=== PATIENT | female | born 1990 | race Caucasian/White ===

== ENCOUNTER 2020-04-29 12:02 | Inpatient (IN) | payer BC ==
[~2020-04-29] VITALS: Ht 177.8 cm; Wt 88.9 kg
--- NOTE | 2020-04-29 13:52 | NUR ---
RT COLLECTED COVID 19 SWAB WITH NO COMPLICATIONS. RT USED THE CEPHEID RAPID TEST THROUGH [facility] PER DR REQUEST AT THIS TIME.
--- NOTE | 2020-04-30 14:34 | PR ---
[facility] [address] [facility] [place], [place] [address] Signed PP Progress Notes Datetime Report Generated by CPN: 04/30/2020 14:34 SUBJECTIVE: [id number] Pain: Within Normal Limits Nausea/Vomiting: Denies Flatus: Yes Bowel Movement: No Vital Signs: [id number] Vital Signs: Reviewed; Within Normal Limits Notable Details: normotensive since delivery Cardiovascular: Normal Respiratory: Normal Abdomen/Uterus: Normal Lochia: Normal Vulva/Perineum: Normal Breasts: Normal CVA Tenderness: Normal Extremities: Normal Progress: Normal IMPRESSION/PLAN/PROCEDURES: [id number] Impression: Normal Progression Plan: Continue Present Management Procedures: None Progress Notes: Pt is a 29 yo G1 now P1001 PPD#1 s/p -uncomplicated labor/delivery -COVID+ on admission, h/o COVID+ 01/21/21, asymptomatic, in isolation - well, denies complaints Anticipate DC to home tomorrow Signing Physician: Lynette Guardado DO Copies: ~ *Electronically Signed* 04/30/20 1434 LYNETTE GUARDADO DO PATIENT NAME: JEANA MARCANO PROGRESS NOTE DATE OF : 89 PHYSICIAN: LYNETTE GUARDADO DO RPT #: [id number] REPORT IS CONFIDENTIAL AND NOT TO BE RELEASED WITHOUT AUTHORIZATION
--- NOTE | 2020-04-30 14:35 | PR ---
[facility] [address] [facility] [place], [place] [address] Signed PP Progress Notes Datetime Report Generated by CPN: 04/30/2020 14:35 SUBJECTIVE: [id number] Pain: Within Normal Limits Nausea/Vomiting: Denies Flatus: Yes Bowel Movement: No Vital Signs: [id number] Vital Signs: Reviewed; Within Normal Limits Notable Details: normotensive since delivery Cardiovascular: Normal Respiratory: Normal Abdomen/Uterus: Normal Lochia: Normal Vulva/Perineum: Normal Breasts: Normal CVA Tenderness: Normal Extremities: Normal Progress: Normal IMPRESSION/PLAN/PROCEDURES: [id number] Impression: Normal Progression Plan: Continue Present Management Procedures: None Progress Notes: Pt is a 29 yo G1 now P1001 PPD#1 s/p -uncomplicated labor/delivery -COVID+ on admission, h/o COVID+ 01/21/21, asymptomatic, in isolation - well, denies complaints Anticipate DC to home tomorrow Signing Physician: Lynette Guardado DO Copies: ~ *Electronically Signed* 04/30/20 2971 LYNETTE GUARDADO DO PATIENT NAME: JEANA MARCANO PROGRESS NOTE DATE OF : [birth year] PHYSICIAN: LYNETTE GUARDADO DO RPT #: [id number] REPORT IS CONFIDENTIAL AND NOT TO BE RELEASED WITHOUT AUTHORIZATION
--- NOTE | 2020-05-01 08:29 | PR ---
[facility] [address] [facility] [place] [address] Signed PP Progress Notes Datetime Report Generated by CPN: 05/01/2020 08:29 SUBJECTIVE: [id number] Pain: Within Normal Limits Nausea/Vomiting: Denies Flatus: Yes Bowel Movement: Yes Vital Signs: [id number] Vital Signs: Reviewed Notable Details: normotensive since delivery Cardiovascular: Normal Respiratory: Normal Abdomen/Uterus: Normal Lochia: Normal Vulva/Perineum: Normal Breasts: Normal CVA Tenderness: Normal Extremities: Normal Progress: Normal Exam Comments: Fundus firm below umbilicus Lochia light Extremities without edema, peripheral pulses palpable bilaterally RRR IMPRESSION/PLAN/PROCEDURES: [id number] Impression: Normal Progression Plan: Continue Present Management; Discharge Procedures: None Progress Notes: PPD#2 s/p Admitted for PROM COVID+ on admission, h/o COVID 01/2020 Normal progress, anticipate DC to home today Signing Physician: Lynette Guardado DO Copies: ~ *Electronically Signed* 05/01/20 0829 LYNETTE GUARDADO DO PATIENT NAME: JEANA MARCANO PROGRESS NOTE DATE OF : 89 PHYSICIAN: LYNETTE GUARDADO DO RPT #: [id number] REPORT IS CONFIDENTIAL AND NOT TO BE RELEASED WITHOUT AUTHORIZATION
== END 2020-05-01 11:10 | disposition home or self-care (01) | DRG 805 ==
LOC: FBCO 12:02 → FBC 13:30
PROVIDERS: ADMIT Obstetrics & Gynecology; ATTEND Obstetrics & Gynecology
PROC: 10E0XZZ Delivery of Products of Conception, External Approach (ICD-10-PCS; principal; 2020-04-29)
PROC: 0KQM0ZZ Repair Perineum Muscle, Open Approach (ICD-10-PCS; 2020-04-29)
PROC: 0UQMXZZ Repair Vulva, External Approach (ICD-10-PCS; 2020-04-29)
DX: O98.52 Other viral diseases complicating childbirth (principal); U07.1 COVID-19; Z37.0 Single live birth; O42.92 Full-term premature rupture of membranes, unspecified as to length of time between rupture and onset of labor; Z3A.39 39 weeks gestation of pregnancy; O69.81X0 Labor and delivery complicated by cord around neck, without compression, not applicable or unspecified; O70.1 Second degree perineal laceration during delivery; O71.82 Other specified trauma to perineum and vulva
CPT/HCPCS: 84112; 85027; C9803; J2590; J7121; U0003

== ENCOUNTER 2022-08-22 00:01 | Inpatient (IN) | payer BC ==
--- NOTE | 2022-08-24 07:55 | PR ---
[facility] [address] [facility] [place], [place] [address] Signed PP Progress Notes Datetime Report Generated by CPN: 08/24/2022 07:55 SUBJECTIVE: [id number] Pain: Within Normal Limits Flatus: Yes Bowel Movement: Yes Vital Signs: [id number] Vital Signs: Reviewed; Within Normal Limits EXAM: Met Cardiovascular: Normal Respiratory: Normal Abdomen/Uterus: Normal Lochia: Normal Breasts: Normal Extremities: Normal Progress: Normal Exam Comments: NAD, sitting in bed nursing RRR No dyspnea/ retractions Abd SNTND IMPRESSION/PLAN/PROCEDURES: [id number] Impression: Normal Progression Plan: Continue Present Management; Discharge Progress Notes: PPD#1 s/p uncomplicated -progressing well, requesting DC to home today Hgb 9.7 this am, reports she did have a single orange-size blood clot last night, otherwise bleeding light Signing Physician: Lynette Guardado DO Copies: ~ *Electronically Signed* 08/24/22 0755 LYNETTE GUARDADO DO PATIENT NAME: KRYSJEANAEVELYN OLEARY PROGRESS NOTE DATE OF : 89 PHYSICIAN: LYNETTE GUARDADO DO RPT #: [id number] REPORT IS CONFIDENTIAL AND NOT TO BE RELEASED WITHOUT AUTHORIZATION
== END 2022-08-24 09:15 | disposition home or self-care (01) | DRG 806 ==
LOC: FBC 23:13
PROVIDERS: ADMIT Obstetrics & Gynecology; ATTEND Obstetrics & Gynecology
PROC: 10E0XZZ Delivery of Products of Conception, External Approach (ICD-10-PCS; principal; 2022-08-23)
PROC: 0KQM0ZZ Repair Perineum Muscle, Open Approach (ICD-10-PCS; 2022-08-23)
DX: O42.02 Full-term premature rupture of membranes, onset of labor within 24 hours of rupture (principal); D62 Acute posthemorrhagic anemia; Z37.0 Single live birth; O72.1 Other immediate postpartum hemorrhage; O70.0 First degree perineal laceration during delivery; O48.0 Post-term pregnancy; O90.81 Anemia of the puerperium; O77.0 Labor and delivery complicated by meconium in amniotic fluid; O69.1XX0 Labor and delivery complicated by cord around neck, with compression, not applicable or unspecified; Z67.10 Type A blood, Rh positive; Z3A.40 40 weeks gestation of pregnancy
CPT/HCPCS: 36415; 85027; 86850; 86900; 86901; A9270; J2590